=== PATIENT | male | born 1960 | race Caucasian/White ===

== ENCOUNTER 2022-02-09 08:52 | Observation (INO) ==
[2022-02-09] MEDS ORDERED: 0.9 % Sodium Chloride 1,000 ML IVC ONE (09:46)
[2022-02-09] MEDS ORDERED: Iopamidol - 370 500 ML MLS IVP ONE (09:56)
[2022-02-09 10:34] LABS: Basophils # 0.1 K/mcL (0.0-0.2); Eosinophils # 0.4 K/mcL (0.0-0.6); Eosinophils % 3.7 %; Hematocrit 39.4 % (37.5-50.1); Immature Granulocytes % 0.2 % (0-4); Lymphocytes # 2.3 K/mcL (0.6-4.6); Lymphocytes % 21.8 %; Mean Corpuscular Hemoglobin 30.4 pg (28.0-33.3); Mean Corpuscular Volume 92.3 fL (83.0-100.0); Mean Platelet Volume 9.1 fL (9.4-12.4); Monocytes # 0.8 K/mcL (0.0-1.3); Monocytes % 7.2 %; Neutrophils # 6.9 K/mcL (1.6-8.9); Platelet Count 367 K/mcL (140-400); Red Blood Count 4.27 M/mcL (4.19-5.50); Red Cell Distribution Width 14.9 % (11.5-14.5); Segmented Neutrophils % 66.1 %; White Blood Count 10.5 K/mcL (4.3-11.1)
[2022-02-09 10:49] LABS: BUN/Creatinine Ratio 10 (6-26); Blood Urea Nitrogen 9 mg/dL (8-23); Carbon Dioxide 23 mEq/L (23-29); Chloride 106 mEq/L (98-107); Glucose 88 mg/dL (70-105); Osmolality,Calculated 276 (280-300); Sodium 134 mEq/L (136-145); Troponin I < 0.03 ng/mL (< 0.04)
[2022-02-09] MEDS ORDERED: Naloxone 0.4 MG/ML INJ IVP PRN (13:36)
[2022-02-09] MEDS ORDERED: Acetaminophen 325 MG TABLET PO PRN (13:38)
[2022-02-09 13:44] LABS: Influenza A PCR Negative (Negative); Influenza B PCR Negative (Negative); Resp. Syncytial Virus PCR Negative (Negative)
[2022-02-09 13:48] LABS: SARS-CoV-2 by PCR (In House) Negative (Negative)
[2022-02-09] MEDS ORDERED: cefTRIAXone 1,000 MG in Water for inj. (sterile) 10 ML IVP SCH (14:00)
[2022-02-09] MEDS ORDERED: Azithromycin 500 MG in D5% in Water 250 ML IVPB SCH (14:00)
[2022-02-09] MEDS: Aspirin Enteric Coated 81 MG Tablet PO SCH (14:34)
[2022-02-09 15:27] LABS: Magnesium 1.9 mg/dL (1.6-2.6); Thyroid Stimulating Hormone 2.374 mcIU/mL (0.340-5.600)
[2022-02-09 15:29] LABS: Folate 9.9 ng/mL (3.0-16.0)
[2022-02-09] MEDS ORDERED: 0.9 % Sodium Chloride 1,000 ML IVC SCH (15:30)
[2022-02-09] MEDS: Ipratropium/Albuterol Neb 3 ML IH SCH ×2 (16:16→22:43)
[2022-02-09 17:05] LABS: Bilirubin,Urine Negative (Negative); Blood,Urine Negative (Negative); Clarity,Urine Clear (Clear); Color,Urine Colorless (Yellow); Glucose,Urine (UA) Normal (Normal); Ketones,Urine Negative (Negative); Leukocyte Esterase,Urine Negative (Negative); Mucus,Urine Few per lpf (None-Few); Nitrite,Urine Negative (Negative); Protein,Urine Negative (Neg-Trace); RBC,Urine 0-3 per hpf (0-3); Specific Gravity,Urine 1.025 (1.010-1.025); Squamous Epithelial Cell,Urine Few per hpf (None-Few); Urobilinogen,Urine Normal (Normal)
[2022-02-10] MEDS: Ipratropium/Albuterol Neb 3 ML IH SCH ×2 (04:04→10:06)
[2022-02-10 04:18] VITALS: TEMP 97.7
[2022-02-10] MEDS ORDERED: *HR* Enoxaparin 40 MG/0.4 ML SYRINGE SQ SCH (06:00)
[2022-02-10 06:33] LABS: Alanine Aminotransferase 9 Units/L (7-52); Albumin 3.4 g/dL (3.5-5.7); Albumin/Globulin Ratio 0.9 (1.1-2.2); Alkaline Phosphatase 124 Units/L (34-104); Aspartate Amino Transferase 11 Units/L (13-39); BUN/Creatinine Ratio 8 (6-26); Bilirubin,Direct 0.2 mg/dL (0.0-0.2); Bilirubin,Total 0.5 mg/dL (0.3-1.0); Blood Urea Nitrogen 8 mg/dL (8-23); Calcium 8.7 mg/dL (8.6-10.3); Carbon Dioxide 26 mEq/L (23-29); Chloride 107 mEq/L (98-107); Chol/HDL Ratio 6.7 (0-4.9); Cholesterol 161 mg/dL (< 200); Globulin 3.7 g/dL (2.4-3.5); Glucose 85 mg/dL (70-105); HDL Cholesterol 24 mg/dL (40-59); LDL Cholesterol,Calculated 119 mg/dL (< 100); Lipase 34 Units/L (11-82); Osmolality,Calculated 282 (280-300); Potassium 4.2 mEq/L (3.5-5.1); Sodium 137 mEq/L (136-145); Total Protein 7.1 g/dL (6.4-8.9); Triglycerides 89 mg/dL (< 150); Troponin I < 0.03 ng/mL (< 0.04)
[2022-02-10 06:59] VITALS: BP 118/63; PULSE 53; O2SAT 98
[2022-02-10] MEDS: Aspirin Enteric Coated 81 MG Tablet PO SCH (08:18)
[2022-02-10] MEDS ORDERED: Pantoprazole 40 MG VIAL IVP SCH (09:00)
[2022-02-10 09:24] LABS: INR 1.1; Prothrombin Time 12.2 Seconds (9.4-12.1)
[2022-02-10 11:07] LABS: Estimated Average Glucose 111 mg/dl; Hemoglobin A1C 5.5 %
== END 2022-02-10 11:20 | disposition home or self-care (01) ==
LOC: 3ANU 08:52 → EMEROOARM 08:52 → 3ANU 13:13
PROVIDERS: ADMIT General Practice; ATTEND General Practice